=== PATIENT | male | born 2000 | race Caucasian/White ===

== ENCOUNTER 2022-04-12 22:16 | Emergency (ER) | payer OTHER ==
[~2022-04-12] VITALS: Ht 170.2 cm; Wt 65.9 kg
[2022-04-12 22:17] VITALS: BP 144/78
[2022-04-13] MEDS ORDERED: LIDOCAINE 1% MDV 20ML VIAL SC ONE (01:40)
[2022-04-13] MEDS ORDERED: NEOSPORIN OINT 0.9 GM PKT TOP ONE (01:40)
== END 2022-04-13 03:01 | disposition home or self-care (01) ==
LOC: M ED 22:16
DX: S01.112A Laceration without foreign body of left eyelid and periocular area, initial encounter (principal); S00.12XA Contusion of left eyelid and periocular area, initial encounter; W01.198A Fall on same level from slipping, tripping and stumbling with subsequent striking against other object, initial encounter